=== PATIENT | female | born 1995 | race Caucasian/White ===

== ENCOUNTER → 2020-03-28 01:20 | Observation (INO) ==
[2020-03-27 23:00] LABS: Bilirubin,Urine Negative (Negative); Blood,Urine Negative (Negative); Clarity,Urine Cloudy (Clear); Color,Urine Yellow (Yellow); Glucose,Urine (UA) Normal (Normal); Ketones,Urine Trace mg/dL (Negative); Leukocyte Esterase,Urine Small (Negative); Nitrite,Urine Negative (Negative); Protein,Urine 30 mg/dL (Neg-Trace); Specific Gravity,Urine >= 1.030 (1.010-1.025); Urobilinogen,Urine Normal (Normal)
[2020-03-27 23:03] LABS: Bacteria,Urine Moderate per hpf (None-Few); Mucus,Urine Many per lpf (None-Few); Squamous Epithelial Cell,Urine Many per hpf (None-Few); WBC,Urine 15-30 per hpf (0-3)
[2020-03-28 00:08] LABS: Candida DNA Not Detected (Not Detect); Gardnerella DNA DETECTED (Not Detect); Trichomonas DNA Not Detected (Not Detect)
[~2020-03-28 01:20] MED LIST: *HR* OxyCODONE/APAP 5/325 TABLET PO PRN; 0.9 % Sodium Chloride 2,000 ML IV ONE; Ondansetron 4 MG/2 ML VIAL IVP ONE
== END | disposition home or self-care (01) ==
LOC: 1NENULAB
PROVIDERS: ADMIT Obstetrics & Gynecology; ATTEND Obstetrics & Gynecology

== ENCOUNTER → 2020-04-26 02:21 | Observation (INO) ==
[2020-04-26 02:23] LABS: Bilirubin,Urine Negative (Negative); Blood,Urine Moderate (Negative); Clarity,Urine Turbid (Clear); Color,Urine Light-Yellow (Yellow); Glucose,Urine (UA) Normal (Normal); Ketones,Urine Negative (Negative); Leukocyte Esterase,Urine Small (Negative); Mucus,Urine Few per lpf (None-Few); Nitrite,Urine Negative (Negative); PH,Urine 6.5 pH Units (5.0-8.0); Protein,Urine Trace mg/dL (Neg-Trace); RBC,Urine TNTC per hpf (0-3); Specific Gravity,Urine 1.023 (1.010-1.025); Squamous Epithelial Cell,Urine Moderate per hpf (None-Few); Urobilinogen,Urine Normal (Normal)
== END | disposition home or self-care (01) ==
LOC: 1NENULAB
PROVIDERS: ADMIT Advanced Practice Midwife; ATTEND Advanced Practice Midwife

== ENCOUNTER → 2020-05-11 00:30 | Observation (INO) ==
[2020-05-10 21:24] LABS: Basophils % 0.3 %; Eosinophils # 0.1 K/mcL (0.0-0.6); Hematocrit 32.7 % (35.3-44.9); Hemoglobin 10.3 g/dL (11.5-15.4); Immature Granulocytes % 1.2 % (0-4); Lymphocytes # 1.5 K/mcL (0.6-4.6); Lymphocytes % 24.5 %; Mean Corpuscular HGB Conc 31.5 g/dL (31.6-35.5); Mean Corpuscular Hemoglobin 28.5 pg (28.0-33.3); Mean Corpuscular Volume 90.6 fL (83.0-100.0); Mean Platelet Volume 10.7 fL (9.4-12.4); Monocytes # 0.3 K/mcL (0.0-1.3); Monocytes % 5.6 %; Platelet Count 133 K/mcL (140-400); Red Blood Count 3.61 M/mcL (3.82-4.97); Red Cell Distribution Width 14.1 % (11.5-14.5); Segmented Neutrophils % 67.4 %; White Blood Count 5.9 K/mcL (4.3-11.1)
[2020-05-10 21:59] LABS: Alanine Aminotransferase 15 Units/L (7-52); Aspartate Amino Transferase 15 Units/L (13-39); BUN/Creatinine Ratio 15 (6-26); Blood Urea Nitrogen 7 mg/dL (6-20); Uric Acid 4.3 mg/dL (2.3-7.6); eGFR For African Americans > 60 (> 60); eGFR For Non-African Americans > 60 (> 60)
[2020-05-10 22:02] LABS: Lactate Dehydrogenase 115 Units/L (140-271)
[2020-05-10 22:38] LABS: Bacteria,Urine Few per hpf (None-Few); Bilirubin,Urine Negative (Negative); Blood,Urine Negative (Negative); Clarity,Urine Turbid (Clear); Color,Urine Yellow (Yellow); Glucose,Urine (UA) Normal (Normal); Ketones,Urine Negative (Negative); Leukocyte Esterase,Urine Large (Negative); Mucus,Urine Moderate per lpf (None-Few); Nitrite,Urine Negative (Negative); PH,Urine 7.5 pH Units (5.0-8.0); Protein,Urine 30 mg/dL (Neg-Trace); RBC,Urine 0-3 per hpf (0-3); Specific Gravity,Urine 1.027 (1.010-1.025); Squamous Epithelial Cell,Urine Many per hpf (None-Few); WBC,Urine 15-30 per hpf (0-3)
[2020-05-10 22:39] LABS: Protein/Creatinine Ratio,Urine 0.16 mg/mg (0.00-0.20)
[~2020-05-11 00:30] MED LIST changes: -*HR* OxyCODONE/APAP 5/325 TABLET PO PRN; -0.9 % Sodium Chloride 2,000 ML IV ONE; +Acetaminophen/Butalbital/CaffeineTABLET PO PRN; +Magnesium Oxide 400 MG TABLET PO SCH; -Ondansetron 4 MG/2 ML VIAL IVP ONE
== END | disposition home or self-care (01) ==
LOC: 1NENULAB
PROVIDERS: ADMIT Obstetrics & Gynecology; ATTEND Obstetrics & Gynecology

== ENCOUNTER 2020-06-10 19:54 | Observation (INO) ==
[2020-06-10 18:17] LABS: Bacteria,Urine Few per hpf (None-Few); Bilirubin,Urine Negative (Negative); Blood,Urine Small (Negative); Clarity,Urine Turbid (Clear); Color,Urine Yellow (Yellow); Glucose,Urine (UA) Normal (Normal); Ketones,Urine Negative (Negative); Leukocyte Esterase,Urine Small (Negative); Mucus,Urine Moderate per lpf (None-Few); Nitrite,Urine Negative (Negative); PH,Urine 6.5 pH Units (5.0-8.0); Protein,Urine 30 mg/dL (Neg-Trace); Specific Gravity,Urine 1.028 (1.010-1.025); Squamous Epithelial Cell,Urine Many per hpf (None-Few); Urobilinogen,Urine Normal (Normal)
[2020-06-10 18:52] VITALS: BP 129/68
[2020-06-10 20:02] LABS: Candida DNA DETECTED (Not Detect); Gardnerella DNA Not Detected (Not Detect); Trichomonas DNA Not Detected (Not Detect)
== END 2020-06-10 20:24 | disposition home or self-care (01) ==
LOC: 1NENULAB
PROVIDERS: ADMIT Student in an Organized Health Care Education/Training Program; ATTEND Student in an Organized Health Care Education/Training Program

== ENCOUNTER → 2020-07-12 16:33 | Observation (INO) | END | disposition home health service (06) | LOC: 1NENULAB | PROVIDERS: ADMIT Advanced Practice Midwife; ATTEND Advanced Practice Midwife ==

== ENCOUNTER 2020-07-14 20:10 | Inpatient (IN) ==
[2020-07-14 18:56] LABS: Basophils % 0.3 %; Eosinophils % 0.6 %; Hematocrit 32.6 % (35.3-44.9); Hemoglobin 10.6 g/dL (11.5-15.4); Immature Granulocytes % 1.6 % (0-4); Lymphocytes # 1.3 K/mcL (0.6-4.6); Lymphocytes % 19.9 %; Mean Corpuscular HGB Conc 32.5 g/dL (31.6-35.5); Mean Corpuscular Hemoglobin 29.5 pg (28.0-33.3); Mean Corpuscular Volume 90.8 fL (83.0-100.0); Mean Platelet Volume 10.8 fL (9.4-12.4); Monocytes # 0.5 K/mcL (0.0-1.3); Neutrophils # 4.6 K/mcL (1.6-8.9); Platelet Count 148 K/mcL (140-400); Red Blood Count 3.59 M/mcL (3.82-4.97); Red Cell Distribution Width 14.6 % (11.5-14.5); Segmented Neutrophils % 70.6 %; White Blood Count 6.4 K/mcL (4.3-11.1)
[2020-07-14 19:02] LABS: Protein/Creatinine Ratio,Urine 0.19 mg/mg (0.00-0.20)
[2020-07-14 19:05] LABS: Bacteria,Urine Few per hpf (None-Few); Bilirubin,Urine Negative (Negative); Blood,Urine Negative (Negative); Calcium Oxalate Crystals,Urine Present; Clarity,Urine Turbid (Clear); Color,Urine Yellow (Yellow); Glucose,Urine (UA) Normal (Normal); Ketones,Urine Negative (Negative); Leukocyte Esterase,Urine Large (Negative); Mucus,Urine Few per lpf (None-Few); Nitrite,Urine Negative (Negative); PH,Urine 6.5 pH Units (5.0-8.0); Protein,Urine Trace mg/dL (Neg-Trace); Specific Gravity,Urine 1.021 (1.010-1.025); Squamous Epithelial Cell,Urine Many per hpf (None-Few); Urobilinogen,Urine Normal (Normal)
[2020-07-14 19:12] LABS: Alanine Aminotransferase 11 Units/L (7-52); Aspartate Amino Transferase 13 Units/L (13-39); BUN/Creatinine Ratio 13 (6-26); Blood Urea Nitrogen 7 mg/dL (6-20); Lactate Dehydrogenase 110 Units/L (140-271); Uric Acid 4.4 mg/dL (2.3-7.6); eGFR For African Americans > 60 (> 60); eGFR For Non-African Americans > 60 (> 60)
[~2020-07-14 20:10] MED LIST changes: +*HR* FentaNYL (PF) 100 MCG/2 ML VIAL IVP PRN; -Acetaminophen/Butalbital/CaffeineTABLET PO PRN; +Azithromycin 500 MG in 0.9 % Sodium Chloride 250 ML IVPB PRN; +Famotidine 20 MG/2 ML VIAL IVP PRN; +Lidocaine 1% 20 ML MDV INFILT PRN; -Magnesium Oxide 400 MG TABLET PO SCH; +Metoclopramide 10 MG/2 ML VIAL IVP PRN; +Naloxone 0.4 MG/ML INJ IVP PRN; +Ondansetron 4 MG/2 ML VIAL IVP PRN; +miSOPROStoL 25 MCG TABLET PO PRN
[2020-07-14] MEDS: Ringers Solution, Lactated 1,000 ML IVC SCH ×2 (20:44→23:21)
[2020-07-14] MEDS ORDERED: EPHEDrine 50 MG/ML VIAL IVP PRN (22:38)
[2020-07-14] MEDS ORDERED: Ropivacaine/PF 0.2% 20 ML VIAL EP ONE (22:38)
[2020-07-14] MEDS ORDERED: *HR* FentaNYL (PF) 100 MCG/2 ML VIAL EP ONE (22:38)
[2020-07-14] MEDS ORDERED: *HR* FentaNYL (PF) 100 MCG/2 ML VIAL ONE (22:44)
[2020-07-14] MEDS ORDERED: Ropivacaine/PF 0.2% 20 ML VIAL ONE (22:44)
[2020-07-14] MEDS: Epidural Premix (fent/bupiv) 110 ML EP SCH (23:22)
[2020-07-15 00:01] LABS: Amphetamine Screen,Urine Negative ng/mL (Cutoff=1000); Barbiturate Screen,Urine Negative ng/mL (Cutoff=200); Benzodiazepines Screen,Urine Negative ng/mL (Cutoff=200); Cannabinoid Screen,Urine Negative ng/mL (Cutoff = 50); Cocaine Screen,Urine Negative ng/mL (Cutoff= 300); Opiate Screen,Urine Negative ng/mL (Cutoff=300); Phencyclidine Screen,Urine Negative ng/mL (Cutoff=25)
[2020-07-15] MEDS ORDERED: Oxytocin 20 units/ LR 1000 mL 20 UNIT/1,000 ML BAG IVC SCH ×2 (00:45→10:58)
[2020-07-15] MEDS: Epidural Premix (fent/bupiv) 110 ML EP SCH (05:51)
[2020-07-15] MEDS ORDERED: Measles/Mumps/Rubella Vacc 0.5 ML VIAL SQ PRN (10:58)
[2020-07-15] MEDS ORDERED: NON-FORMULARY MEDICATION 1 EACH EACH (Prenatal Tablet 1 TAB) PO SCH (10:58)
[2020-07-15] MEDS ORDERED: Acetaminophen 325 MG TABLET PO PRN (10:58)
[2020-07-15] MEDS ORDERED: Rho Immune Globulin 1,500 UNIT SYRINGE IM PRN (10:58)
[2020-07-15] MEDS: Prenatal Vit/FA 1 EACH TABLET PO SCH (12:58)
[2020-07-15] MEDS: Ibuprofen 600 MG TABLET PO PRN ×2 (12:58→20:02)
[2020-07-16 05:04] LABS: Basophils % 0.5 %; Eosinophils # 0.1 K/mcL (0.0-0.6); Eosinophils % 1.1 %; Hematocrit 27.2 % (35.3-44.9); Immature Granulocytes % 1.9 % (0-4); Lymphocytes % 35.8 %; Mean Corpuscular HGB Conc 32.4 g/dL (31.6-35.5); Mean Corpuscular Volume 89.8 fL (83.0-100.0); Mean Platelet Volume 10.5 fL (9.4-12.4); Monocytes # 0.4 K/mcL (0.0-1.3); Monocytes % 7.2 %; Platelet Count 128 K/mcL (140-400); Red Blood Count 3.03 M/mcL (3.82-4.97); Red Cell Distribution Width 14.4 % (11.5-14.5); Segmented Neutrophils % 53.5 %; White Blood Count 5.7 K/mcL (4.3-11.1)
[2020-07-16 05:09] LABS: Hemoglobin 8.8 g/dL (11.5-15.4); Neutrophils # 3.1 K/mcL (1.6-8.9)
[2020-07-16 06:02] LABS: Platelet Estimate Normal (Normal)
[2020-07-16 07:52] VITALS: BP 113/66
[2020-07-16] MEDS: Prenatal Vit/FA 1 EACH TABLET PO SCH (07:59)
[2020-07-16] MEDS: Ibuprofen 600 MG TABLET PO PRN (08:27)
== END 2020-07-16 12:15 | disposition home or self-care (01) | DRG 560 ==
LOC: 1NENULAB → 1NENUOBS 07-15 10:56
PROVIDERS: ADMIT Student in an Organized Health Care Education/Training Program; ATTEND Student in an Organized Health Care Education/Training Program

== ENCOUNTER → 2021-08-09 01:12 | Observation (INO) ==
[2021-08-09 01:01] LABS: Bacteria,Urine Few per hpf (None-Few); Bilirubin,Urine Negative (Negative); Blood,Urine Moderate (Negative); Clarity,Urine Turbid (Clear); Color,Urine Yellow (Yellow); Glucose,Urine (UA) Normal (Normal); Hyaline Casts,Urine Few per lpf (None Seen); Ketones,Urine Negative (Negative); Leukocyte Esterase,Urine Small (Negative); Mucus,Urine Few per lpf (None-Few); Nitrite,Urine Negative (Negative); PH,Urine 6.5 pH Units (5.0-8.0); Protein,Urine Negative (Neg-Trace); RBC,Urine TNTC per hpf (0-3); Squamous Epithelial Cell,Urine Moderate per hpf (None-Few); Urobilinogen,Urine Normal (Normal); WBC,Urine 0-3 per hpf (0-3)
== END | disposition home or self-care (01) ==
LOC: 1NENULAB
PROVIDERS: ADMIT Advanced Practice Midwife; ATTEND Advanced Practice Midwife

== ENCOUNTER → 2021-08-15 02:50 | Observation (INO) ==
[2021-08-15 02:26] LABS: Bacteria,Urine Few per hpf (None-Few); Bilirubin,Urine Negative (Negative); Blood,Urine Trace (Negative); Clarity,Urine Clear (Clear); Color,Urine Light-Yellow (Yellow); Glucose,Urine (UA) Normal (Normal); Ketones,Urine Negative (Negative); Leukocyte Esterase,Urine Negative (Negative); Mucus,Urine Few per lpf (None-Few); Nitrite,Urine Negative (Negative); PH,Urine 6.5 pH Units (5.0-8.0); Protein,Urine Trace mg/dL (Neg-Trace); RBC,Urine 15-30 per hpf (0-3); Specific Gravity,Urine 1.017 (1.010-1.025); Squamous Epithelial Cell,Urine Moderate per hpf (None-Few); Urobilinogen,Urine Normal (Normal); WBC,Urine 0-3 per hpf (0-3)
== END | disposition home or self-care (01) ==
LOC: 1NENULAB
PROVIDERS: ADMIT Obstetrics & Gynecology; ATTEND Obstetrics & Gynecology

== ENCOUNTER → 2021-08-16 18:52 | Observation (INO) ==
[2021-08-16 01:28] LABS: Basophils % 0.5 %; Eosinophils % 0.7 %; Hematocrit 29.9 % (35.3-44.9); Hemoglobin 9.7 g/dL (11.5-15.4); Immature Granulocytes % 1.5 % (0-4); Lymphocytes % 26.3 %; Mean Corpuscular HGB Conc 32.4 g/dL (31.6-35.5); Mean Corpuscular Hemoglobin 29.1 pg (28.0-33.3); Mean Corpuscular Volume 89.8 fL (83.0-100.0); Mean Platelet Volume 10.4 fL (9.4-12.4); Monocytes # 0.4 K/mcL (0.0-1.3); Monocytes % 6.9 %; Neutrophils # 3.5 K/mcL (1.6-8.9); Platelet Count 148 K/mcL (140-400); Red Blood Count 3.33 M/mcL (3.82-4.97); Red Cell Distribution Width 14.6 % (11.5-14.5); Segmented Neutrophils % 64.1 %; White Blood Count 5.5 K/mcL (4.3-11.1)
[2021-08-16 01:33] LABS: Lymphocytes # 1.5 K/mcL (0.6-4.6)
[2021-08-16 01:41] LABS: Bilirubin,Urine Negative (Negative); Blood,Urine Moderate (Negative); Clarity,Urine Turbid (Clear); Color,Urine Amber (Yellow); Glucose,Urine (UA) Normal (Normal); Ketones,Urine Negative (Negative); Leukocyte Esterase,Urine Negative (Negative); Nitrite,Urine Negative (Negative); PH,Urine 6.5 pH Units (5.0-8.0); Protein,Urine 100 mg/dL (Neg-Trace); Specific Gravity,Urine >= 1.030 (1.010-1.025); Urobilinogen,Urine Normal (Normal)
[2021-08-16 01:59] LABS: Platelet Estimate Normal (Normal)
[2021-08-16] MEDS: Ringers Solution, Lactated 1,000 ML IVC SCH ×2 (03:08→09:56)
[2021-08-16 17:06] LABS: eGFR For African Americans > 60 (> 60); eGFR For Non-African Americans > 60 (> 60)
[~2021-08-16 18:52] MED LIST changes: -*HR* FentaNYL (PF) 100 MCG/2 ML VIAL IVP PRN; +*HR* HYDROcodone/Acet 5/325 mg TABLET PO ONE; +*HR* HYDROmorphone PF 0.5 MG/0.5 ML SYRINGE IVP PRN; +*HR* Nalbuphine 10 MG/ML AMPUL IV ONE; +*HR* OxyCODONE Immed Rel 5 MG TABLET PO PRN; +0.9 % Sodium Chloride 1,000 ML IVC SCH; +Acetaminophen IV 1,000 MG/100 ML BAG IVPB ONE; -Azithromycin 500 MG in 0.9 % Sodium Chloride 250 ML IVPB PRN; -Famotidine 20 MG/2 ML VIAL IVP PRN; +Isovue-370 500 ML BOTTLE IVP ONE; -Lidocaine 1% 20 ML MDV INFILT PRN; -Metoclopramide 10 MG/2 ML VIAL IVP PRN; -Naloxone 0.4 MG/ML INJ IVP PRN; +Ondansetron 4 MG/2 ML VIAL IVP ONE; +Ringers Solution, Lactated 1,000 ML IVC ONE; -miSOPROStoL 25 MCG TABLET PO PRN
== END | disposition home or self-care (01) ==
LOC: 1NENULAB
PROVIDERS: ADMIT Advanced Practice Midwife; ATTEND Advanced Practice Midwife

== ENCOUNTER 2021-08-17 20:24 | Observation (INO) ==
[2021-08-17] MEDS: Ondansetron ODT 4 MG TAB.RAPDIS SL PRN ×2 (16:58→22:57)
[2021-08-17] MEDS: *HR* OxyCODONE Immed Rel 5 MG TABLET PO PRN ×2 (16:58→21:36)
[2021-08-17 16:59] LABS: Basophils % 0.4 %; Eosinophils % 0.6 %; Hematocrit 28.8 % (35.3-44.9); Hemoglobin 9.6 g/dL (11.5-15.4); Immature Granulocytes % 1.4 % (0-4); Lymphocytes % 20.1 %; Mean Corpuscular HGB Conc 33.3 g/dL (31.6-35.5); Mean Corpuscular Hemoglobin 29.6 pg (28.0-33.3); Mean Corpuscular Volume 88.9 fL (83.0-100.0); Mean Platelet Volume 11.2 fL (9.4-12.4); Monocytes # 0.3 K/mcL (0.0-1.3); Monocytes % 5.3 %; Neutrophils # 3.7 K/mcL (1.6-8.9); Platelet Count 143 K/mcL (140-400); Red Blood Count 3.24 M/mcL (3.82-4.97); Red Cell Distribution Width 14.6 % (11.5-14.5); Segmented Neutrophils % 72.2 %; White Blood Count 5.1 K/mcL (4.3-11.1)
[2021-08-17] MEDS: Ringers Solution, Lactated 1,000 ML IVC SCH ×2 (16:59→21:35)
[2021-08-17 17:03] LABS: Bacteria,Urine Few per hpf (None-Few); Bilirubin,Urine Negative (Negative); Blood,Urine Trace (Negative); Clarity,Urine Turbid (Clear); Color,Urine Light-Yellow (Yellow); Glucose,Urine (UA) Normal (Normal); Ketones,Urine Negative (Negative); Leukocyte Esterase,Urine Trace (Negative); Mucus,Urine Few per lpf (None-Few); Nitrite,Urine Negative (Negative); Protein,Urine Trace mg/dL (Neg-Trace); RBC,Urine 15-30 per hpf (0-3); Specific Gravity,Urine 1.019 (1.010-1.025); Squamous Epithelial Cell,Urine Moderate per hpf (None-Few); Urobilinogen,Urine Normal (Normal); WBC,Urine 0-3 per hpf (0-3)
[2021-08-17 17:13] LABS: Alanine Aminotransferase 15 Units/L (7-52); Albumin 3.3 g/dL (3.5-5.7); Albumin/Globulin Ratio 1.3 (1.1-2.2); Alkaline Phosphatase 91 Units/L (34-104); Aspartate Amino Transferase 16 Units/L (13-39); BUN/Creatinine Ratio 15 (6-26); Bilirubin,Total 0.4 mg/dL (0.3-1.0); Blood Urea Nitrogen 6 mg/dL (6-20); Calcium 8.4 mg/dL (8.6-10.3); Carbon Dioxide 20 mEq/L (23-29); Chloride 107 mEq/L (98-107); Globulin 2.6 g/dL (2.4-3.5); Glucose 92 mg/dL (70-105); Osmolality,Calculated 279 (280-300); Potassium 3.5 mEq/L (3.5-5.1); Sodium 136 mEq/L (136-145); Total Protein 5.9 g/dL (6.4-8.9); eGFR For African Americans > 60 (> 60); eGFR For Non-African Americans > 60 (> 60)
[~2021-08-17 20:24] MED LIST changes: -*HR* HYDROcodone/Acet 5/325 mg TABLET PO ONE; +*HR* HYDROmorphone (PF) 1 MG/ML SYRINGE IVP ONE; -*HR* HYDROmorphone PF 0.5 MG/0.5 ML SYRINGE IVP PRN; -*HR* Nalbuphine 10 MG/ML AMPUL IV ONE; -*HR* OxyCODONE Immed Rel 5 MG TABLET PO PRN; -0.9 % Sodium Chloride 1,000 ML IVC SCH; -Acetaminophen IV 1,000 MG/100 ML BAG IVPB ONE; -Isovue-370 500 ML BOTTLE IVP ONE; -Ondansetron 4 MG/2 ML VIAL IVP ONE; -Ondansetron 4 MG/2 ML VIAL IVP PRN; -Ringers Solution, Lactated 1,000 ML IVC ONE; +Ringers Solution, Lactated 1,000 ML ONE; +Ringers Solution, Lactated 500 ML IVC ONE
[2021-08-18 02:42] VITALS: O2SAT 99
[2021-08-18] MEDS: *HR* OxyCODONE Immed Rel 5 MG TABLET PO PRN ×3 (02:42→13:46)
[2021-08-18] MEDS: Ringers Solution, Lactated 1,000 ML IVC SCH ×2 (05:27→13:45)
[2021-08-18] MEDS: Ondansetron ODT 4 MG TAB.RAPDIS SL PRN (09:06)
[2021-08-18 14:39] VITALS: BP 94/61; PULSE 93; TEMP 97.8
== END 2021-08-18 15:59 | disposition home or self-care (01) ==
LOC: 1NENULAB → 1NENUOBS 20:24
PROVIDERS: ADMIT Student in an Organized Health Care Education/Training Program; ATTEND Student in an Organized Health Care Education/Training Program

== ENCOUNTER → 2021-08-27 15:30 | Observation (INO) ==
[2021-08-27 12:39] LABS: Basophils % 0.4 %; Eosinophils % 0.7 %; Hemoglobin 10.1 g/dL (11.5-15.4); Immature Granulocytes % 1.6 % (0-4); Lymphocytes # 1.1 K/mcL (0.6-4.6); Lymphocytes % 19.6 %; Mean Corpuscular HGB Conc 31.6 g/dL (31.6-35.5); Mean Corpuscular Hemoglobin 28.5 pg (28.0-33.3); Mean Corpuscular Volume 90.4 fL (83.0-100.0); Mean Platelet Volume 10.7 fL (9.4-12.4); Monocytes # 0.4 K/mcL (0.0-1.3); Monocytes % 6.7 %; Platelet Count 132 K/mcL (140-400); Red Blood Count 3.54 M/mcL (3.82-4.97); White Blood Count 5.7 K/mcL (4.3-11.1)
[2021-08-27 13:03] LABS: Protein/Creatinine Ratio,Urine 0.24 mg/mg (0.00-0.20)
[2021-08-27 13:12] LABS: Alanine Aminotransferase 11 Units/L (7-52); Aspartate Amino Transferase 14 Units/L (13-39); BUN/Creatinine Ratio 14 (6-26); Blood Urea Nitrogen 6 mg/dL (6-20); Lactate Dehydrogenase 107 Units/L (140-271); Uric Acid 5.1 mg/dL (2.3-7.6); eGFR For African Americans > 60 (> 60); eGFR For Non-African Americans > 60 (> 60)
[2021-08-27 14:56] LABS: Influenza A PCR Negative (Negative); Influenza B PCR Negative (Negative); Resp. Syncytial Virus PCR Negative (Negative)
[2021-08-27 14:57] LABS: SARS-CoV-2 by PCR (In House) Negative (Negative)
[~2021-08-27 15:30] MED LIST changes: -*HR* HYDROmorphone (PF) 1 MG/ML SYRINGE IVP ONE; +Acetaminophen 325 MG TABLET PO PRN; +Aspirin Enteric Coated 81 MG Tablet PO SCH; +Metoclopramide 10 MG/2 ML VIAL IVP ONE; +Ondansetron 4 MG/2 ML VIAL IVP ONE; +Prenatal Vit/FA 1 EACH TABLET PO SCH; +Ringers Solution, Lactated 1,000 ML IVC ONE; -Ringers Solution, Lactated 1,000 ML ONE; -Ringers Solution, Lactated 500 ML IVC ONE
== END | disposition home or self-care (01) ==
LOC: 1NENULAB
PROVIDERS: ADMIT Student in an Organized Health Care Education/Training Program; ATTEND Student in an Organized Health Care Education/Training Program